=== PATIENT | female | born 1990 | race Caucasian/White ===

== ENCOUNTER 2020-07-27 17:00 | Emergency (ER) | payer MEDICAID, OTHER ==
[~2020-07-27] VITALS: Ht 160 cm; Wt 57.3 kg
[2020-07-27] MEDS ORDERED: LORazepam 1MG TABLET PO ONE (17:30)
[2020-07-27] MEDS ORDERED: LORazepam 1MG TABLET ONE (17:31)
--- NOTE | 2020-07-27 17:36 | NUR ---
PT REPORT FROM [facility] RN. PT CARE TO BE ASSUMED.
[2020-07-27 17:48] LABS: BASOPHILS % (AUTO) 0 % (0-1); EOSINOPHILS % (AUTO) 2 % (1-7); LYMPHOCYTES % (AUTO) 17 % (22-44); MEAN CORPUSCULAR HGB CONC 34.4 g/dL (32.4-35.8); MEAN PLATELET VOLUME 8.4 fL (7.4-10.4); MONOCYTES % (AUTO) 8 % (2-9); NEUTROPHILS % (AUTO) 73 % (42-75); PLATELET COUNT 251 x10^3/uL (130-400); RED BLOOD COUNT 4.89 x10^6/uL (3.82-5.3); RED CELL DISTRIBUTION WIDTH 12.4 % (9.6-15.2)
[2020-07-27 17:50] LABS: MD NO
[2020-07-27 17:53] LABS: ALANINE AMINOTRANSFERASE 20 U/L (12-78); ALBUMIN 4.7 g/dL (3.4-5.0); ANION GAP 7 mmol/L (5-15); CALCIUM 9.6 mg/dL (8.5-10.1); CHLORIDE 109 mmol/L (98-107); CREATININE 0.92 mg/dL (0.55-1.02)
[2020-07-27 17:57] LABS: ALKALINE PHOSPHATASE 85 U/L (45-117); BILIRUBIN,TOTAL 0.5 mg/dL (0.2-1.0); TOTAL PROTEIN 8.3 g/dL (6.4-8.2); TROPONIN I < 0.015 ng/mL (0.000-0.045)
[2020-07-27] MEDS ORDERED: AMICAR PO (18:56)
[2020-07-27] MEDS ORDERED: FAMO20TA7 PO (18:56)
[2020-07-27] MEDS ORDERED: [UNRECOGNIZED DRUG - OTHER] (18:56)
[2020-07-27 18:57] VITALS: BP 104/67
--- NOTE | 2020-07-27 18:59 | NUR ---
PT SITTING QUIETLY ON [place]. RESP EVEN & UNLABORED, SPEECH CLEAR, SKIN WNL. REPORTS SLIGHT CHEST TIGHTNESS AND FEELING "WINDED". PT REPORTS ERP TOLD HER SHE'D BE DISCHARGED. STATE SHE'S FEELING CALMER.
[2020-07-27 19:14] LABS: T4 (THYROXINE) 10.3 mcg/dL (4.8-13.9)
== END 2020-07-27 19:21 | disposition home or self-care (01) ==
LOC: ED 18:16
DX: R00.2 Palpitations (principal); R06.00 Dyspnea, unspecified; R00.0 Tachycardia, unspecified; I51.7 Cardiomegaly
CPT/HCPCS: 36415; 71045; 80053; 83880; 84436; 84443; 84484; 84703; 85025; 85379; 93005; 99285